=== PATIENT | female | born 1995 | race Asian ===

== ENCOUNTER 2024-05-18 18:51 | Inpatient (IN) ==
[2024-05-18 19:45] LABS: Basophils # (auto) 0.03 K/uL (0.00-0.20); Basophils % (auto) 0.3 %; Eosinophils # (auto) 0.06 K/uL (0.00-0.50); Eosinophils % (auto) 0.7 %; Hematocrit (blood only) 36.9 % (37.0-47.0); Hemoglobin 12.8 g/dl (12.0-16.0); Immature Granulocytes # (auto) 0.03 K/uL (0.01-0.20); Immature Granulocytes % (auto) 0.3 %; Lymphocytes # (auto) 2.62 K/uL (1.20-3.40); Lymphocytes % (auto) 28.5 %; Mean Corpuscular Hemoglobin 33.1 pg (25.0-34.0); Mean Corpuscular Hgb Conc 34.7 g/dL (32.0-36.0); Mean Corpuscular Volume 95.3 fL (80.0-100.0); Mean Platelet Volume 10.6 fL (9.4-12.4); Monocytes % (auto) 5.4 %; Neutrophils # (auto) 5.95 K/uL (1.40-6.50); Neutrophils % (auto) 64.8 %; Platelet Count 212 K/uL (130-400); RDW Standard Deviation 41.8 fL (36.4-46.3); Red Blood Count 3.87 M/uL (4.20-5.40); White Blood Count 9.19 K/ul (4.8-10.8)
[2024-05-18 19:49] LABS: Appearance Urine Cloudy (Clear); Bacteria Urine Automated 1+ (None Seen); Bilirubin Urine Negative (Negative); Blood Urine Trace (Negative); Cast Urine Automated 0-2 /lpf (0-2); Color Urine Yellow; Glucose Urine UA Negative (Negative); Ketones Urine Trace (Negative); Leukocyte Esterase Urine 2+ (Negative); Nitrite Urine Negative (Negative); Protein Urine Negative (Negative); RBC Urine Automated 0-2 /hpf (0-2); Specific Gravity Urine 1.013 (1.000-1.030); Urobilinogen Urine Negative (Negative); pH Urine 5.5 (4.5-7.5)
[2024-05-18 20:01] LABS: Pregnancy Test, Serum Negative (Negative)
[2024-05-18 20:02] LABS: Albumin Globulin Ratio 1.7 (0.9-2); Albumin Level 4.8 gm/dl (3.4-5.0); BUN Creatinine Ratio 18.2 (10-20); Bilirubin,Total 0.8 mg/dl (0.2-1.0); Calcium 9.6 mg/dl (8.6-10.3); Creatinine Clr Calc Pharmacy 92.6 ml/min; Globulin 2.9 gm/dl (2.5-4.0); Potassium 3.4 mmol/L (3.5-5.1); Total Protein 7.7 gm/dl (6.0-8.3)
[2024-05-18] MEDS: OPTIRAY 320 100ml IV ONE (20:13)
--- NOTE | 2024-05-18 20:24 | Emergency Department Note ---
ED Provider Note History of Present Illness Chief Complaint: Abdominal Pain Stated Complaint: LOWER ABD PAIN Time Seen by Provider: 05/18/24 19:50 Source: patient Mode of arrival: ambulatory Limitations: no limitations Patient is a 28-year-old female who presents to the emergency department with complaints of lower abdominal pain. Patient states that her pain is all lower in her abdomen and also feels that she is having some rectal pain. Patient does note that she is having normal bowel movements though. Patient denies any nausea or vomiting. Home Medications Medication Instructions Recorded Confirmed Type ibuprofen 200 mg tablet 200 mg PO Q6H PRN Pain 05/18/24 05/18/24 History Allergies Allergy/AdvReac Type Severity Reaction Status Date / Time Penicillins Allergy Unknown Verified 01/19/23 08:39 Past Med/Surg History Problem List (Updated 05/19/24 @ 00:31 by YURI Rucker) Hemorrhagic cyst of left ovary (Acute) Acute pelvic pain (Acute) Keloid Palpitations PVC (premature ventricular contraction) SOB (shortness of breath) Complaint of paresthesia Chest pain Medical History (Updated 05/19/24 @ 00:31 by YURI Rucker) Hemorrhagic cyst of ovary Panic attacks Social History Smoking Status: Never smoker Do You Dip or Chew Tobacco: No; Hx Alcohol Use: No Hx Substance Use: No Preferred Language: Lithuanian Communication Ability: Effective 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 marital status: Single current occupational status: student current occupation: PhD, psychology Feels Safe at Home: Yes Physical Exam Vital Signs Vital Signs - 24 hr 05/18/24 19:05 05/18/24 21:29 05/18/24 21:36 Temperature 36.5 C Temperature Source Temporal Artery Scan Pulse Rate 91 H 69 77 Pulse Rate from SpO2 Sensor 76 Respiratory Rate 18 17 Respiratory Effort / Characteristics Non-Labored Spontaneous Respiratory Depth Normal Respiratory Pattern Regular Blood Pressure 119/83 102/64 Blood Pressure Mean 95 76 Blood Pressure Position Sitting Pulse Oximetry 99 100 Oxygen Delivery Method Room Air Room Air Sepsis Recent Fever Within 48 Hours No Sepsis New/Unexplained Change in Mental Status N/A Sepsis Action Taken by Nursing No Action Required VITAL SIGNS - Vital signs and nursing notes were reviewed. GENERAL -28-year-old female appearing her stated age who is in no acute distress. Communicates well with provider and answers questions appropriately. HEAD - NC/AT. LUNGS - Chest wall symmetric without accessory muscle use, intercostals retractions, or central cyanosis. Breath sounds clear throughout all [place]. No wheezes, rales, or rhonchi appreciated. CARDIAC - RRR with S1/S2. No murmur, rubs, or gallops appreciated. ABDOMEN - Abdominal contour without pulsations or visible masses. Negative [place]'s or Sr Ward's Signs. BS normoactive all four quadrants. Mildly increased tenderness to palpation appreciated in the lower abdomen. No guarding. No rebound Tenderness. No palpable masses, hepatosplenomegaly, or ascites noted. NEUROLOGIC - Sensory intact to light touch throughout. PSYCH - A&Ox3 and cooperates fully with examiner. Pt is very pleasant and interacts well with examiner. Course Administered Medications Discontinued Medications Ioversol (Optiray 320 100ml) 93 ml IV ONCE ONE Stop: 05/18/24 20:13 Last Admin: 05/18/24 20:13 Dose: 93 ml Documented By: LYNN Trimethoprim/Sulfamethoxazole (Sulfamethoxazole/Trimethoprim Ds 800/160mg Tab) 1 tab PO NOW ONE Stop: 05/18/24 21:36 Last Admin: 05/18/24 22:39 Dose: 1 tab Documented By: KEY Medical Decision Making Differential Diagnosis Differential diagnoses includes gastritis, gastroenteritis, IBS, UTI, kidney stone, small bowel obstruction, pancreatitis, peritonitis, constipation, abdominal abcess, among others. Medical Records Attestation: I reviewed the patient's medical records. Home Medications was personally reviewed by me Laboratory Data Attestation: I reviewed the patient's lab results. 05/18/24 19:30 05/18/24 19:30 Lab Results 05/18/24 05/18/24 05/18/24 Range/Units 19: 19:30 21:24 WBC 9.19 (4.8-10.8) K/ul RBC 3.87 L (4.20-5.40) M/uL Hgb 12.8 (12.0-16.0) g/dl POC Hgb (12.0-16.0) g/dl Hct 36.9 L (37.0-47.0) % POC Hct (37-47) % MCV 95.3 (80.0-100.0) fL MCH 33.1 (25.0-34.0) pg MCHC 34.7 (32.0-36.0) g/dL RDW Std Deviation 41.8 (36.4-46.3) fL RDW Coeff of Nestor 12.0 (11.5-14.5) % Plt Count 212 (130-400) K/uL MPV 10.6 (9.4-12.4) fL Immature Gran % (Auto) 0.3 % Neut % (Auto) 64.8 % Lymph % (Auto) 28.5 % [place] % (Auto) 5.4 % Eos % (Auto) 0.7 % Baso % (Auto) 0.3 % Neut # (Auto) 5.95 (1.40-6.50) K/uL Lymph # (Auto) 2.62 (1.20-3.40) K/uL [place] # (Auto) 0.50 (0.11-0.59) K/uL Eos # (Auto) 0.06 (0.00-0.50) K/uL Baso # (Auto) 0.03 (0.00-0.20) K/uL Immature Gran # (Auto) 0.03 (0.01-0.20) K/uL POC Sodium (135-144) mmol/L Sodium 137 (136-145) mmol/L POC Potassium (3.3-5.0) mmol/L Potassium 3.4 L (3.5-5.1) mmol/L POC Chloride (101-112) mmol/L Chloride 103 (98-107) mmol/L Carbon Dioxide 27 (21-32) mmol/L POC Total CO2 (24-31) mmol/L Anion Gap 7 (3-11) POC Anion Gap (16-25) mmol/L POC BUN (7-18) mg/dl BUN 16 (6-23) mg/dl Creatinine 0.88 (0.6-1.2) mg/dl POC Creatinine (0.6-1.3) mg/dl Est Cr Clr Drug Dosing 92.6 ml/min eGFR 91.74 BUN/Creatinine Ratio 18.2 (10-20) Glucose 110 H (70-99(Fasting)) mg/dl POC Glucose (other) (70-99) mg/dl Calcium 9.6 (8.6-10.3) mg/dl POC Ioniz Calcium [place] (1.12-1.32) mmol/l Total Bilirubin 0.8 (0.2-1.0) mg/dl AST 21 (13-39) U/L ALT 20 (7-52) U/L Alkaline Phosphatase 49 (34-104) U/L Total Protein 7.7 (6.0-8.3) gm/dl Albumin 4.8 (3.4-5.0) gm/dl Globulin 2.9 (2.5-4.0) gm/dl Albumin/Globulin Ratio 1.7 (0.9-2) Lipase 20 (11-82) U/L HCG, Qual Negative (Negative) Urine Color Yellow Urine Appearance Cloudy A (Clear) Urine pH 5.5 (4.5-7.5) Ur Specific [place] 1.013 (1.000-1.030) Urine Protein Negative (Negative) Urine Glucose (UA) Negative (Negative) Urine Ketones Trace H (Negative) Urine Blood Trace H (Negative) Urine Nitrite Negative (Negative) Urine Bilirubin Negative (Negative) Urine Urobilinogen Negative (Negative) Ur Leukocyte Esterase 2+ H (Negative) Urine WBC (Auto) 6-10 H (0-5) /hpf Urine RBC (Auto) 0-2 (0-2) /hpf U Hyaline Cast (Auto) 0-2 (0-2) /lpf U Epithel Cells (Auto) 6-10 H (0-2) /hpf Urine Bacteria (Auto) 1+ H (None Seen) Blood Type B Positive Antibody Screen NEGATIVE 05/18/24 Range/Units 21:27 WBC (4.8-10.8) K/ul RBC (4.20-5.40) M/uL Hgb (12.0-16.0) g/dl POC Hgb 10.9 L (12.0-16.0) g/dl Hct (37.0-47.0) % POC Hct 32 L (37-47) % MCV (80.0-100.0) fL MCH (25.0-34.0) pg MCHC (32.0-36.0) g/dL RDW Std Deviation (36.4-46.3) fL RDW Coeff of Nestor (11.5-14.5) % Plt Count (130-400) K/uL MPV (9.4-12.4) fL Immature Gran % (Auto) % Neut % (Auto) % Lymph % (Auto) % [place] % (Auto) % Eos % (Auto) % Baso % (Auto) % Neut # (Auto) (1.40-6.50) K/uL Lymph # (Auto) (1.20-3.40) K/uL [place] # (Auto) (0.11-0.59) K/uL Eos # (Auto) (0.00-0.50) K/uL Baso # (Auto) (0.00-0.20) K/uL Immature Gran # (Auto) (0.01-0.20) K/uL POC Sodium 137 (135-144) mmol/L Sodium (136-145) mmol/L POC Potassium 4.2 (3.3-5.0) mmol/L Potassium (3.5-5.1) mmol/L POC Chloride 102 (101-112) mmol/L Chloride (98-107) mmol/L Carbon Dioxide (21-32) mmol/L POC Total CO2 23 L (24-31) mmol/L Anion Gap (3-11) POC Anion Gap 17.0 (16-25) mmol/L POC BUN 16 (7-18) mg/dl BUN (6-23) mg/dl Creatinine (0.6-1.2) mg/dl POC Creatinine 0.9 (0.6-1.3) mg/dl Est Cr Clr Drug Dosing ml/min eGFR BUN/Creatinine Ratio (10-20) Glucose (70-99(Fasting)) mg/dl POC Glucose (other) 114 H (70-99) mg/dl Calcium (8.6-10.3) mg/dl POC Ioniz Calcium [place] 1.23 (1.12-1.32) mmol/l Total Bilirubin (0.2-1.0) mg/dl AST (13-39) U/L ALT (7-52) U/L Alkaline Phosphatase (34-104) U/L Total Protein (6.0-8.3) gm/dl Albumin (3.4-5.0) gm/dl Globulin (2.5-4.0) gm/dl Albumin/Globulin Ratio (0.9-2) Lipase (11-82) U/L HCG, Qual (Negative) Urine Color Urine Appearance (Clear) Urine pH (4.5-7.5) Ur Specific [place] (1.000-1.030) Urine Protein (Negative) Urine Glucose (UA) (Negative) Urine Ketones (Negative) Urine Blood (Negative) Urine Nitrite (Negative) Urine Bilirubin (Negative) Urine Urobilinogen (Negative) Ur Leukocyte Esterase (Negative) Urine WBC (Auto) (0-5) /hpf Urine RBC (Auto) (0-2) /hpf U Hyaline Cast (Auto) (0-2) /lpf U Epithel Cells (Auto) (0-2) /hpf Urine Bacteria (Auto) (None Seen) Blood Type Antibody Screen Imaging Data Radiologist's Impression: Abdomen/Pelvis CT 05/18/24 19:50 CR Exam(s): CT ABDOMEN + PELVIS With Contrast IV Amt: 93 cc [id number] EXAM: CT Abdomen and Pelvis With Intravenous Contrast CLINICAL HISTORY: Reason for exam: lower abdominal pain. TECHNIQUE: Axial computed tomography images of the abdomen and pelvis with intravenous contrast. CTDI is 13 mGy and DLP is 706 mGy-cm. Automated exposure control was utilized for the study. A dose lowering technique was utilized adhering to the principles of ALARA. CONTRAST: Patient received 93 cc [id number] of IV contrast COMPARISON: No relevant prior studies available. FINDINGS: Lung bases: Unremarkable. ABDOMEN: Liver: Unremarkable. No mass. Gallbladder and bile ducts: Unremarkable. No calcified stones. No ductal dilation. Pancreas: Unremarkable. No mass. No ductal dilation. Spleen: Unremarkable. No splenomegaly. Adrenals: Unremarkable. No mass. Kidneys and ureters: Unremarkable. No solid mass. No hydronephrosis. Stomach and bowel: Unremarkable. No mucosal thickening. No bowel obstruction. PELVIS: Appendix: Normal appendix. Bladder: Unremarkable. No mass. Reproductive: Unremarkable uterus. Ruptured hemorrhagic left ovarian cyst, the margins of which are obscured by hemoperitoneum. There is active bleeding into the pelvis. Moderate hemoperitoneum fills the pelvis and extends cephalad within the bilateral paracolic gutters to the perihepatic and perisplenic spaces. ABDOMEN and PELVIS: Intraperitoneal space: Moderate hemoperitoneum arising from the pelvis with active bleeding. No free air. Bones/joints: No acute fracture. No dislocation. Soft tissues: Unremarkable. Vasculature: Unremarkable. No abdominal aortic aneurysm. Lymph nodes: Unremarkable. No enlarged lymph nodes. IMPRESSION: Ruptured hemorrhagic left ovarian cyst, the margins of which are obscured by hemoperitoneum. There is active bleeding into the pelvis. Moderate hemoperitoneum fills the pelvis and extends cephalad within the bilateral paracolic gutters to the perihepatic and perisplenic spaces. Correlate for hemodynamic stability. Communications: Call Doctor Other Electronically signed by: Andrzej Coy M.D. 05/18/24 20:42 PM MDM Narrative Patient is a 28-year-old female who presents to the emergency department with complaints of lower abdominal pain. Patient states that her pain is all lower in her abdomen and also feels that she is having some rectal pain. Patient does note that she is having normal bowel movements though. Patient denies any nausea or vomiting. Patient was evaluated by myself and findings were noted in the physical exam above. Patient was ordered IV placement, lab work, urinalysis, and a CT of the abdomen and pelvis. Patient's lab work resulted and was relatively unremarkable. Patient's initial white blood cell count was 9.19 and her initial hemoglobin was 12.8 and hematocrit was 36.9. Patient had no electrolyte imbalance and had a qualitative hCG level drawn that was negative. Patient's urinalysis resulted and was indicative of infection with urine bacteria noted. Patient CT of the abdomen pelvis was completed and interpreted by radiology to show a ruptured hemorrhagic left ovarian cyst the margins of which were obscured by the hemoperitoneum. There was active bleeding noted in the pelvis, moderate hemoperitoneum fills the pelvis and extends within the bilateral paracolic gutters to the perihepatic and perisplenic spaces. I discussed this case with Dr. Valle and he advised that I order a POC BMP and H&H to reevaluate the patient's hemoglobin and hematocrit as well as a type and screen. Upon reevaluation the patient is reporting some increased tenderness across her abdomen at this point. Patient's blood pressure has also been a little bit lower since her initial upon presentation to the ED. Patient's repeat blood pressure was only 97/62. Patient denies feeling any dizziness or lightheadedness. I reached out to Dr. Barney who is on-call for KAR[employer] TEACH[employer] and discussed this case with him. Though he advised that many of these cases are self-limiting and resolve themselves he was agreeable to admit the patient for observation after the patient's POC BMP and H&H showed a 2g drop in the patient's hemoglobin level. The patient was agreeable to this plan. Patient was started treatment for her urinary tract infection with a dose of Bactrim. Please refer to Dr. Barney and Zac Mills KARATE TEACHER's documentation for further evaluation and management of this patient. Impression Hemorrhagic cyst of left ovary, Acute pelvic pain Discharge Plan Visit Data Chief Complaint: Abdominal Pain Stated Complaint: LOWER ABD PAIN ED Provider: Kevan Valle ED Midlevel Provider: Kim Garcia Discharge Problem: Hemorrhagic cyst of left ovary, Acute pelvic pain Patient Disposition: Admitted As Inpatient Discharge Instructions Interventions: ED Discharge Assessment Last Done: 05/18/24 23:46
--- NOTE | 2024-05-18 20:43 | CT Scan Report ---
Exam(s): CT ABDOMEN + PELVIS With Contrast IV Amt: 93 cc [id number] EXAM: CT Abdomen and Pelvis With Intravenous Contrast CLINICAL HISTORY: Reason for exam: lower abdominal pain. TECHNIQUE: Axial computed tomography images of the abdomen and pelvis with intravenous contrast. CTDI is 13 mGy and DLP is 706 mGy-cm. Automated exposure control was utilized for the study. A dose lowering technique was utilized adhering to the principles of ALARA. CONTRAST: Patient received 93 cc [id number] of IV contrast COMPARISON: No relevant prior studies available. FINDINGS: Lung bases: Unremarkable. ABDOMEN: Liver: Unremarkable. No mass. Gallbladder and bile ducts: Unremarkable. No calcified stones. No ductal dilation. Pancreas: Unremarkable. No mass. No ductal dilation. Spleen: Unremarkable. No splenomegaly. Adrenals: Unremarkable. No mass. Kidneys and ureters: Unremarkable. No solid mass. No hydronephrosis. Stomach and bowel: Unremarkable. No mucosal thickening. No bowel obstruction. PELVIS: Appendix: Normal appendix. Bladder: Unremarkable. No mass. Reproductive: Unremarkable uterus. Ruptured hemorrhagic left ovarian cyst, the margins of which are obscured by hemoperitoneum. There is active bleeding into the pelvis. Moderate hemoperitoneum fills the pelvis and extends cephalad within the bilateral paracolic gutters to the perihepatic and perisplenic spaces. ABDOMEN and PELVIS: Intraperitoneal space: Moderate hemoperitoneum arising from the pelvis with active bleeding. No free air. Bones/joints: No acute fracture. No dislocation. Soft tissues: Unremarkable. Vasculature: Unremarkable. No abdominal aortic aneurysm. Lymph nodes: Unremarkable. No enlarged lymph nodes. IMPRESSION: Ruptured hemorrhagic left ovarian cyst, the margins of which are obscured by hemoperitoneum. There is active bleeding into the pelvis. Moderate hemoperitoneum fills the pelvis and extends cephalad within the bilateral paracolic gutters to the perihepatic and perisplenic spaces. Correlate for hemodynamic stability. Communications: Call Doctor Other Electronically signed by: Andrzej Coy M.D. 05/18/24 20:42 PM
[2024-05-18] MEDS ORDERED: IBUPROFEN 600 MG TAB PO PRN (21:39)
[2024-05-18 21:40] LABS: iSTAT Creatinine 0.9 mg/dl (0.6-1.3); iSTAT Hemoglobin 10.9 g/dl (12.0-16.0); iSTAT Ionized Calcium 1.23 mmol/l (1.12-1.32); iSTAT Potassium 4.2 mmol/L (3.3-5.0)
--- NOTE | 2024-05-18 21:49 | Emergency Department Note ---
ED Visit Note I was consulted by the Advanced Practice Provider, Kim Garcia NP. I personally made/approved the management plan and take responsibility for the patient management. I performed a substantive portion of the visit. This includes the aspects of: -History/Physical/Personally seeing the patient. Uncomfortable but nontoxic. Patient has increased tenderness and mild rebound on examination. -MDM: Patient on CT imaging. negative. Hemoglobin actually normal. Repeat hemoglobin showed a drop of 2 g. Patient's blood pressure was borderline low normal. BRIDGE/STRUCTURE INSPECTION TEAM LEADER consulted and will admit patient for further management. I refer you to the EMR for further details. -I independently interpreted the following studies: CT imaging of the abdomen pelvis reveals hemoperitoneum and an actively bleeding ovarian cyst. .
--- NOTE | 2024-05-18 22:12 | History & Physical Report ---
Date of Service May 18, 2024 Assessment & Plan (1) Hemorrhagic cyst of ovary: Plan: Dmitri is a 28-year-old presented to the ED for acute onset abdominal pelvic pain. Diagnosed with UTI and ruptured hemorrhagic cyst with concern for active bleeding. Hemoglobin dropped by approximately 2 points while in the ED. Will admit patient for monitoring due to acute blood loss concerns. Has labs pending for the morning. Overall appears stable with normal vitals. Minimal pain at time of evaluation. Discussed findings and plan with patient and answered all questions. 45 minutes spent in review of history, exam and discussion (2) Acute pelvic pain: History of Present Illness Primary Care Provider: Aurelia Farmer MD Dmitri is a 28-year-old presents to the ED for acute onset abdominal pelvic pain. In the ED she was diagnosed with a UTI and underwent a CT scan for evaluation. CT scan showed a ruptured hemorrhagic cyst with active bleeding noted. Hemoglobin was noted to drop from 12.8-10.9 during ED course. ED requested admission for monitoring due to concern for acute blood loss. Patient reports that she has noted pain improvement over the past 15 or 20 minutes and overall reporting mild abdominal pelvic pain. Denies any fevers chills or infectious symptoms. 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 marital status: Single current occupational status: student current occupation: PhD, psychology Feels Safe at Home: Yes Physical Exam Gastrointestinal (Abdomen): Inspection/Auscultation: abdomen normal to inspection; abdomen not distended Percussion/Palpation: abdomen soft; abdomen nontender, no guarding and abdomen not rigid Results & Data Vital Signs (Past 12 Hours) Vital Signs Temp Pulse Resp BP Pulse Ox O2 Del Method 05/18/24 21:45 107/73 05/18/24 21:36 77 17 102/64 100 Room Air 05/18/24 21:29 69 05/18/24 19:05 36.5 C 91 H 18 119/83 99 Room Air Coding Level of Care Code 67079 IN/OBS CONSULT LVL 3,45M Diagnoses Hemorrhagic cyst of ovary N83.209 Acute pelvic pain R10.2
[2024-05-18] MEDS: SULFAMETHOXAZOLE/TRIMETHOPRIM DS 800/160MG TAB PO ONE (22:39)
[2024-05-18] MEDS ORDERED: ONDANSETRON INJ 2 MG/ML 2 ML VIAL IV PRN (23:57)
[2024-05-18] MEDS ORDERED: ACETAMINOPHEN 325 MG TAB PO PRN (23:57)
[2024-05-19 06:39] LABS: Hematocrit (blood only) 30.6 % (37.0-47.0); Hemoglobin 10.6 g/dl (12.0-16.0)
--- NOTE | 2024-05-19 07:57 | Discharge Summary ---
Date of Service May 19, 2024 Admission HPI Per Admitting Provider Dmitri is a 28-year-old presents to the ED for acute onset abdominal pelvic pain. In the ED she was diagnosed with a UTI and underwent a CT scan for evaluation. CT scan showed a ruptured hemorrhagic cyst with active bleeding noted. Hemoglobin was noted to drop from 12.8-10.9 during ED course. ED requested admission for monitoring due to concern for acute blood loss. Patient reports that she has noted pain improvement over the past 15 or 20 minutes and overall reporting mild abdominal pelvic pain. Denies any fevers chills or infectious symptoms. Admission Exam (Per Admitting) Gastrointestinal (Abdomen) Inspection/Auscultation: abdomen normal to inspection; abdomen not distended Percussion/Palpation: abdomen soft; abdomen nontender, no guarding and abdomen not rigid Discharge Data Consultations 05/18/24 21:41 ED Decision to Admit Stat Hospital Course (1) Hemorrhagic cyst of left ovary: Dmitri is a 28-year-old presented to the ED for acute onset abdominal pelvic pain. Diagnosed with UTI and ruptured hemorrhagic cyst with concern for active bleeding. Hemoglobin dropped from 12.8 to 10.9 while in the ED. She was admitted for monitoring due to acute blood loss concerns. Vitals remained stable. Patient reported minimal pain. AM labs showed hgb stabilized at 10.6. Advised patient that pain can take some time to fully resolve and alarm symptoms to prompt call to doctor/return to ED. Discharge Plan Discharge Items Patient Disposition: Home - Self-Care Reason For Visit: OBSERVATION FOR HEMORRHAGIC CYST Discharge Diagnosis: Hemorrhagic cyst Activity: Per Instructions section Non-emergency contact: Spray Gunner Call non-emergency contact if: your temperature is above 101 Follow-up/Referrals: Aurelia Farmer MD [Primary Care Provider] - Diet: Regular Addtl Attending Provider Instructions: You came to the hospital due to lower abdominal pain. Initial labs included a hemoglobin of 12.8 and urinalysis results consistent with a urinary tract infection. A CT showed a ruptured hemorrhagic cyst with active bleeding, and repeat labs showed your hemoglobin dropped to 10.9. You were admitted for monitoring. Your morning labs showed that your hemoglobin had stabilized (now 10.6), your vital signs were normal, and you reported improving pain, and so you were demed safe for discharge. You may continue your regular activities as tolerated .. Pending Studies at Discharge: No Stand-Alone Forms: [facility], Smoking Cessation Medications and DC Order Prescriptions: Continued ibuprofen 200 mg Tablet 200 mg PO Q6H PRN (Reason: Pain) Discharge Orders: Discharge Order (Routine); Ordered 05/19/24 Ordered By: Yared Barney Admission Data Admit Date/Time: 05/18/24 21:38 Attending Provider: Yared Barney Admit Provider: Yared Barney Primary Care Provider: Aurelia Farmer Other Providers: Yared Barney Coding Diagnoses Hemorrhagic cyst of left ovary N83.202 Resident Activity Tracking Resident Involvement: Resident Care Provided Care Provided: Adult [facility]
[2024-05-19] MEDS: SULFAMETHOXAZOLE/TRIMETHOPRIM DS 800/160MG TAB PO SCH (08:52)
== END 2024-05-19 09:27 | disposition home or self-care (01) | DRG 761 ==
LOC: ED 18:51 → 4E1 21:38
DX: N83.202 Unspecified ovarian cyst, left side; Z88.0 Allergy status to penicillin